=== PATIENT | female | born 1955 | race Caucasian/White ===

== ENCOUNTER 2017-07-29 13:08 | Emergency (ER) | payer OTHER ==
[~2017-07-29] VITALS: Ht 160 cm; Wt 53.2 kg
[~2017-07-29 13:08] MED LIST: ASCO100T11 PO; CALC600T12 PO; ESTR1TAB24 PO; LEVO25TA2 PO; MULT1CAP33 PO; PROG100C3 PO; VITA200C61 PO
[2017-07-29 13:23] VITALS: BP 146/85; PULSE 62; RESP 14; O2SAT 100
--- NOTE | 2017-07-29 13:42 | ED.REPORT ---
HPI-Abd Pain F 40 and Over Date of Service Jul 29, 2017 ED Provider: Duncan Gallego DO Pt is a generally healthy 62 y/o female presenting to the ED c/o intermittent LUQ abdominal pain onset about 2 weeks ago. She describes her pain as sharp and pleuritic in character and located just below the ribs on the left. She has also been experiencing SOB on exertion for 2 weeks. Pt c/o associated fatigue, malaise. She denies fever, nausea. The patient takes Synthroid, estrogen, and progesterone. Her pain is sometimes worse when she lays on her stomach. Nursing Notes Stated Complaint: SHORTNESS OF BREATH/ABDOMINAL PAIN Chief Complaint: Female Abdominal Pain Nursing Notes Reviewed: Yes Allergies: Coded Allergies: Sulfa (Sulfonamide Antibiotics) (Verified Allergy, Unknown, 07/29/17) Scheduled Ascorbic Acid (Vitamin C) 100 Mg Tablet 100 MG PO DAILY Calcium Carbonate (Calcium) 600 Mg Tablet 1,250 MG PO DAILY Estradiol (Estradiol) 1 Mg Tablet 1 MG PO DAILY Levothyroxine (Synthroid) 25 Mcg Tablet 25 MCG PO DAILY Multivitamin (Multivitamins) 1 Each Capsule 1 EACH PO DAILY Progesterone,Micronized (Prometrium) 100 Mg Capsule 100 MG PO HS Vitamin E (Dl,Tocopheryl Acet) (Vitamin E) 200 Unit Capsule 200 UNIT PO DAILY General Time Seen by MD: 13:31 Chief Complaint Abdominal pain Hx Obtained From: Patient Arrived By: Walk-in Sudden in Onset?: No Onset Occurred: More than a week ago... 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 Physical Exam Vital Signs Vital Signs (First) Date Time Temp Pulse Resp B/P Pulse Ox O2 Delivery O2 Flow Rate FiO2 07/29/17 13:23 36.5 62 14 146/85 100 Room Air Initial VS: Reviewed, Vital signs normal Head / Eyes: Atraumatic, Normocephalic ENT: Mucous membranes moist, Conjunctiva normal Extremities: Vascular intact, Neuro intact, No swelling Skin: Warm, Dry, No cyanosis Neurologic: Alert, Oriented, Nonfocal Psychiatric: Mood/affect normal, Behavior normal, Normal thought content General/Constitutional: Awake, Alert, No acute distress, Well appearing, Cooperative, Not toxic appearing Appears thin Respiratory / Chest: Breath sounds NL, Breath sounds = bilat, No respiratory distress, No rales, No rhonchi, No wheezing, No stridor Cardiovascular: Heart rate NL, Regular rhythm, Heart sounds NL, No gallop, No murmurs, No rubs, Cap refill not delayed, Peripheral circulation NL Abdomen: Atraumatic, Soft, Non-tender, No guarding, No rebound, No distention, No palpable mass Back: Full range of motion, Painless range of motion Interpretation & Diagnostics Lab Results Interpretation Result Diagram: 07/29/17 1423 07/29/17 1423 Test 07/29/17 14:23 White Blood Count 5.8th/mm3 (3.8-10.1) Red Blood Count 4.87mil/mm3 (3.90-5.20) Hemoglobin 15.2g/dL (12.0-15.6) Hematocrit 44.0% (35.0-46.0) Mean Corpuscular Volume 90.3fL (81-100) Mean Corpuscular Hemoglobin 31.2pg (27.0-35.0) Mean Corpuscular Hemoglobin Concent 34.5% (32.0-37.0) Red Cell Distribution Width 12.5% (12.3-15.4) Platelet Count 249bil/L (150-400) Neutrophils (%) (Auto) 48.0% (40-74) Lymphocytes (%) (Auto) 41.9% (14-46) Monocytes (%) (Auto) 9.0% (4-12) Eosinophils (%) (Auto) 0.7% (0-5) Basophils (%) (Auto) 0.2% (0-3) D-Dimer < 0.50mg/L FEU (<0.50) Sodium Level 141mEq/L (134-144) Potassium Level 4.1mEq/L (3.5-5.2) Chloride Level 103mEq/L (97-108) Carbon Dioxide Level 23mmol/L (18-29) Blood Urea Nitrogen 14mg/dL (8-27) Creatinine 0.60mg/dL (0.57-1.00) Estimat Glomerular Filtration Rate 145mL/min (>59) Glucose Level 78mg/dL (60-99) Calcium Level 9.4mg/dL (8.5-10.1) Magnesium Level 2.0mg/dL (1.6-2.6) Total Bilirubin 0.5mg/dL (0.0-1.2) Aspartate Amino Transf (AST/SGOT) 21U/L (0-50) Alanine Aminotransferase (ALT/SGPT) 13U/L (0-32) Alkaline Phosphatase 116U/L (25-165) Troponin T < 0.010ug/L (0.0-0.011) Pro-B-Type Natriuretic Peptide 139.3pg/mL (0-287) Total Protein 7.7g/dL (6.4-8.4) Albumin 4.2g/dL (3.4-5.0) Lipase 56U/L (13-60) Hold [place]ver Top Tube Received (Received) ECG Interpretation ECG Interpretation: Sinus rhythm rate 63 Time: 14:20 Interpreted by: ED physician Normal ECG Interpretation: No acute ischemic changes X-Ray Chest Interpretation Chest Xray Interpretation: IMPRESSION: No acute or active disease is found in the two-view chest. Cause of pain and shortness of breath is not identified. Dictated by: Yogi Thompson M.D. on 07/29/2017 at 14:16 Approved by: Yogi Thompson M.D. on 07/29/2017 at 14:17 View: Portable, AP & lat Interpretation / Wet Read by: Interpret - Radiologist CT Abd / Pelvis Interpretation IMPRESSION: 1. Cause of left upper quadrant pain is not identified. Left lung base is clear. Left kidney is normal in appearance. 2. Unchanged 4.2 cm cyst in the left ovary. 3. Previous cholecystectomy. Dictated by: Yogi Thompson M.D. on 07/29/2017 at 18:15 Approved by: Yogi Thompson M.D. on 07/29/2017 at 18:21 Study type: Abdominal CT IV contrast, Abdom CT oral contrast Interpretation / Wet Read by: Interpret - Radiologist Re-Eval/Medical Decision Med Decision/Clinical Course Workup reassuring from both a cardiopulmonary and abdominal perspective. Patient feeling better. Return and follow-up precautions given. Re-Evaluation/Progress #1: Time of Eval: 15:46 Re-Evaluation/Progress Note: Pt rechecked. Discussed reassuring imaging and lab results. Discussed obtaining CT at this time vs close follow-up. She would like to have a CT scan. Re-Evaluation/Progress #2: Time of Eval: 18:23 Re-Evaluation/Progress Note: Pt rechecked. Informed pt of plan for discharge. Pt understands and agrees with plan for discharge. F/U instructions and RTER warnings given. All questions addressed. Counseled Regarding: Diagnosis, Lab results, Need for follow-up, When/why to return to ED Discharge & Departure Primary Impression: LUQ abdominal pain Additional Impressions: Dyspnea on exertion Left ovarian cyst Disposition: Home Discharge Condition All VS Reviewed: Yes Condition: Stable Patient Instructions: Acute Abdominal Pain (ED), Dyspnea (ED) Additional Instructions: No dangerous cause for your symptoms was identified. Labs were reassuring. There is no sign of blood clot in the lungs. EKG and chest x-ray were also reassuring. No sign of heart attack or heart muscle damage. The abdomen/pelvis CT scan was reassuring. The only abnormal finding was a left ovarian cyst which was there previously and is not causing your symptoms. Follow-up with your primary care provider in 3-5 days for a recheck. Further diagnostic evaluation may be pursued at that time. Return to the emergency department if you experience worsening pain, chest pain , high fever, persistent vomiting, or for other concerning symptoms. Referrals: Ellen Hall MD (PCP) Scribe Attestation Portions of this note were transcribed by Dave Rodríguez. I, Dr. Gallego personally performed the history, physical exam and medical decision-making; I reviewed and confirmed the accuracy of the information in the transcribed note. copies to: Ellen Hall MDDuncan Mahoney Jul 29, 2017 13:42 DAVE RODRÍGUEZ Jul 29, 2017 13:49
[2017-07-29] MEDS ORDERED: LidocaineVisc 2%:Antacid 1:1 10 mL Syringe PO ONE (13:45)
--- NOTE | 2017-07-29 14:19 | DRSVH ---
PROCEDURE: X-RAY CHEST, TWO VIEWS ([id number]) INDICATIONS: shortness of breath with exertion TECHNIQUE: 2 views of the chest were acquired. COMPARISON: None. FINDINGS: Surgical changes and devices: Vascular clips consistent with previous cholecystectomy. Lungs and pleura: No pleural effusions or pneumothorax. Lungs are clear. Mediastinum: Mediastinal contours are normal. Heart size is normal. Bones and chest wall: No suspicious bony abnormalities. Soft tissues appear unremarkable. IMPRESSION: No acute or active disease is found in the two-view chest. Cause of pain and shortness of breath is not identified. Dictated by: Yogi Thompson M.D. on 07/29/2017 at 14:16 Approved by: Yogi Thompson M.D. on 07/29/2017 at 14:17
[2017-07-29 14:38] LABS: BASOPHILS % (AUTO) 0.2 % (0-3); EOSINOPHILS % (AUTO) 0.7 % (0-5); Mean Corpuscular Hemoglobin 31.2 pg (27.0-35.0); Mean Corpuscular Volume 90.3 fL (81-100); Platelet Count 249 bil/L (150-400)
[2017-07-29 15:15] LABS: Lipase 56 U/L (13-60)
[2017-07-29 15:18] LABS: TROPONIN T < 0.010 ug/L (0.0-0.011)
[2017-07-29] MEDS ORDERED: Iohexol 300 mg/mL 30 mL Inj PO ONE (15:50)
[2017-07-29 15:57] VITALS: BP 124/76; PULSE 73; O2SAT 99
--- NOTE | 2017-07-29 18:23 | DRSVH ---
PROCEDURE: CT ABDOMEN AND PELVIS WITH CONTRAST ([id number]) INDICATIONS: luq pain TECHNIQUE: After the administration of oral and intravenous contrast, 5 mm thick sections acquired from the diap hragms to the symphysis. 5 mm thick coronal and sagittal reformats were performed. For radiation do se reduction, the following was used: automated exposure control, adjustment of mA and/or kV accordi ng to patient size. COMPARISON: [facility], CT, KIDNEY/ URETER/BLADDER, 01/09/2013, 9:55. FINDINGS: Image quality: Excellent. ABDOMEN: Lung bases: Lung bases are clear. Heart size is normal. Solid organs: Liver and spleen are normal in size and enhancement. Gallbladder has been removed. B iliary system is minimally dilated, but not unexpectedly in a post cholecystectomy patient. Pancreas enhances normally. No adrenal nodules. Kidneys are normal in size and enhancement, without hydrone phrosis. Peritoneum and bowel: Stomach, small bowel, and colon loops are normal in caliber and wall thickness . No free fluid or air. Nodes and vessels: No retroperitoneal or mesenteric adenopathy. Aorta and inferior vena cava are no rmal in caliber. Miscellaneous: No ventral hernias. PELVIS: Genitourinary: Bladder wall thickness is normal. Uterus is grossly normal for to CT. The left ovary continues to show a cyst that measures 4.2 cm in greatest dimension and 2012 and shows no change on t he current study. Miscellaneous: No inguinal hernias or adenopathy. Bones: No suspicious bony lesions. No vertebral body compression fractures. IMPRESSION: 1. Cause of left upper quadrant pain is not identified. Left lung base is clear. Left kidney is kishan l in appearance. 2. Unchanged 4.2 cm cyst in the left ovary. 3. Previous cholecystectomy. Dictated by: Yogi Thompson M.D. on 07/29/2017 at 18:15 Approved by: Yogi Thompson M.D. on 07/29/2017 at 18:21
[2017-07-29 18:53] VITALS: BP 126/77; PULSE 74; O2SAT 97
== END 2017-07-29 18:54 | disposition home or self-care (01) ==
LOC: SED 13:08
DX: N83.202 Unspecified ovarian cyst, left side (principal); R10.12 Left upper quadrant pain; R06.00 Dyspnea, unspecified; Z88.2 Allergy status to sulfonamides
CPT/HCPCS: 36415; 71020; 74177; 80053; 83690; 83735; 83880; 84484; 85025; 85378; 93005; 99285; Q9967